=== PATIENT | male | born 1965 | race Hispanic/Latino ===

== ENCOUNTER 2021-02-24 10:49 | Outpatient (CLI) | payer OTHER | END 2021-02-24 10:50 | disposition home or self-care (01) | LOC: SCSRAD 10:49 | PROVIDERS: ATTEND Nurse Practitioner Family | DX: M25.562 Pain in left knee (principal) ==

== ENCOUNTER 2025-02-13 08:41 | Outpatient (CLI) | payer OTHER | END 2025-02-13 08:42 | disposition home or self-care (01) | LOC: SCSRAD 08:41 | PROVIDERS: ATTEND Family Medicine | DX: J44.9 Chronic obstructive pulmonary disease, unspecified (principal) | CPT/HCPCS: 71046 ==